=== PATIENT | male | born 1980 | race Caucasian/White ===

== ENCOUNTER 2017-12-02 15:44 | Emergency (ER) | payer BC ==
[2017-12-02] MEDS: LIDOCAINE/EPI/TETRACAINE TOPICAL GEL 3 ML. TP (17:29)
== END 2017-12-02 18:05 | disposition home or self-care (01) ==
LOC: ER 15:44
DX: S61.206A Unspecified open wound of right little finger without damage to nail, initial encounter (principal); F90.9 Attention-deficit hyperactivity disorder, unspecified type; F17.200 Nicotine dependence, unspecified, uncomplicated; W23.0XXA Caught, crushed, jammed, or pinched between moving objects, initial encounter; Y93.89 Activity, other specified; Y99.8 Other external cause status; Y92.89 Other specified places as the place of occurrence of the external cause
CPT/HCPCS: 10120; 73130; 99284-25